=== PATIENT | female | born 1965 | race Caucasian/White ===

== ENCOUNTER 2019-08-18 01:42 | Day surgery (SDC) | payer OTHER, SELFPAY ==
[2019-08-11 14:48] VITALS: BMI 52.2
[2019-08-18 08:36] VITALS: BP 179/88; PULSE 71; RESP 16; TEMP 36.4; O2SAT 97
--- NOTE | 2019-08-18 08:48 | PM.HPGS ---
History of Present Illness History of Present Illness Consent: Risks, benefits, and alternatives have been discussed and questions answered. Patient agrees to proceed with procedure. Chief complaint: neoplasm screening Narrative: Kylee Ramos is a 54 year old obes W female Referred for her 1st screening colonoscopy secondary to positive colo guard test. Patient is asymptomatic and there is no family history of colon polyps or colo PMFSH Past Medical History Medical History (Updated 08/18/19 @ 08:49 by Scotty Everett MD) Hypertension Morbid obesity Surgical History Surgical History (Updated 08/18/19 @ 08:49 by Scotty Everett MD) H/O total hysterectomy with bilateral salpingo-oophorectomy (BSO) Family History Family History (Updated 03/17/19 @ 14:43 by DOCTOR UNKNOWN) Father Family history of cardiovascular disease, Onset Age: 89 Mother Family history of cardiovascular disease, Onset Age: 82 Social History Social History Smoking status: Never smoker Meds Home Medications and Allergies Home Medications Medication Instructions Recorded Confirmed Type acetaminophen [Tylenol] 325 mg PO ONCE PRN 08/11/19 08/18/19 History ergocalciferol (vitamin D2) 1,250 mcg PO WEEKLY 08/11/19 08/18/19 History lisinopril-hydrochlorothiazide 1 tablet PO DAILY 08/11/19 08/18/19 History Allergies Allergy/AdvReac Type Severity Reaction Status Date / Time No Known Allergies Allergy Verified 08/18/19 08:33 Vital Signs Vital Signs - 24 hr 08/18/19 08:36 Temperature 36.4 C L Pulse Rate 71 Respiratory Rate 16 Blood Pressure 179/88 H Pulse Oximetry 97 Exam Const: Orientation/consciousness: patient oriented x3 Resp: Auscultation: clear to auscultation bilaterally Cardio: Rate: regular rate Rhythm: regular rhythm Heart sounds: no murmurs GI: GI Palp: Yes Soft to palpation, No Tenderness to palpation present (GI), Yes No hepatosplenomegaly present and No Palpable mass present Auscultation: normal bowel sounds Neuro: General: patient oriented x3 and no focal motor deficits Extrem: General: no pedal edema Assessment and Plan Additional Plan screening colonoscopy secondary positive colo guard test
[2019-08-18] MEDS: LACTATED RINGERS 1,000 ML 150 ML IV CONT (08:53)
--- NOTE | 2019-08-18 09:25 | WPDANESEPPF ---
Anes - Initial Pre Proc Eval Procedure: Operation Date: 08/18/19 09:30 Proposed Procedures p Screening Colonoscopy - Scotty Everett MD Date/Time: 08/18/19 09:25 Surgeon: Scotty Everett MD Pre Op Diagnosis: neoplasm screening Patient Data Age: 54 Gender: F Height: 5 ft 2 in Weight: 133.8 kg Last Vital Signs Temp 97.5 F L 08/18/19 08:36 Pulse 71 08/18/19 08:36 Resp 16 08/18/19 08:36 BP 179/88 H 08/18/19 08:36 Pulse Ox 97 08/18/19 08:36 Allergies Allergy/AdvReac Type Severity Reaction Status Date / Time No Known Allergies Allergy Verified 08/18/19 08:33 Home Medications Medication Instructions Recorded Confirmed Type acetaminophen [Tylenol] 325 mg PO ONCE PRN 08/11/19 08/18/19 History ergocalciferol (vitamin D2) 1,250 mcg PO WEEKLY 08/11/19 08/18/19 History lisinopril-hydrochlorothiazide 1 tablet PO DAILY 08/11/19 08/18/19 History Patient hx anesthesia problems: none Family hx anesthesia problems: none PMFSH Past Medical History Medical History (Updated 08/18/19 @ 09:26 by Rico Walden MD) Hypertension Super obesity Surgical History Surgical History (Updated 08/18/19 @ 08:49 by Scotty Everett MD) H/O total hysterectomy with bilateral salpingo-oophorectomy (BSO) Family History Family History (Updated 03/17/19 @ 14:43 by DOCTOR UNKNOWN) Father Family history of cardiovascular disease, Onset Age: 89 Mother Family history of cardiovascular disease, Onset Age: 82 Social History Social History Smoking status: Never smoker Anes - Eval Final PreProcedure Day of Procedure 08/18/19 09:25 Patient weight: super morbidly obese Heart: regular rate and rhythm Lungs: clear to auscultation Airway: Mallampati scale class III Neurological: alert and oriented Last oral intake: >/= 8 hours ASA classification: IV Emergent: no Anesthetic plan: proceed Anesthesia type and monitoring: general GIVS and standard monitoring Informed Consent: The patient's anesthetic plan and its attendant risks and benefits were discussed with the patient/family/POA. Questions were solicited and answers provided to the satisfaction of the patient/family/POA.
--- NOTE | 2019-08-18 10:02 | SUR.OPER ---
RESOLUTION CLIP X2 [id number] EXP
[2019-08-18 10:07] VITALS: BP 116/48; PULSE 66; RESP 18; O2SAT 98
[2019-08-18 10:17] VITALS: BP 125/56; PULSE 60; RESP 18; O2SAT 99
[2019-08-18 10:27] VITALS: BP 127/55; PULSE 62; RESP 19; O2SAT 100
== END 2019-08-18 10:43 | disposition home or self-care (01) ==
PROVIDERS: PCP Family Medicine; Visit Provider Internal Medicine Gastroenterology
PROC: 0DJD8ZZ Inspection of Lower Intestinal Tract, Via Natural or Artificial Opening Endoscopic (ICD-10-PCS; CPT 45378; principal; 2019-08-18 09:30)
DX: Z12.11 Encounter for screening for malignant neoplasm of colon (principal); D12.4 Benign neoplasm of descending colon; D12.8 Benign neoplasm of rectum; K57.30 Diverticulosis of large intestine without perforation or abscess without bleeding; R19.5 Other fecal abnormalities; I10 Essential (primary) hypertension; E66.01 Morbid (severe) obesity due to excess calories; Z68.43 Body mass index [BMI] 50.0-59.9, adult
CPT/HCPCS: 45381; 45380; 45385; 88305; J2704; J7120

== ENCOUNTER → 2019-10-29 15:30 | Outpatient (CLI) | payer OTHER, SELFPAY ==
--- NOTE | ~2019-10-29 | XR_ITS ---
XR chest 2V DATE: 10/29/2019 15:43 INDICATION: Cough TECHNIQUE: 2 views COMPARISON: None FINDINGS: Borderline heart size. Aortic tortuosity. No hilar or mediastinal enlargement. No pulmonary infiltrate or consolidation, pleural effusion or pulmonary vascular congestion or pneumo thorax. IMPRESSION: No active pulmonary disease Reviewed, dictated and finalized at location A. IMPRESSION: No active pulmonary disease
== END ==
PROVIDERS: PCP Family Medicine; Visit Provider Family Medicine
DX: R05 Cough (principal)
CPT/HCPCS: 71046

== ENCOUNTER → 2021-08-31 09:34 | Outpatient (CLI) | payer OTHER, SELFPAY ==
--- NOTE | ~2021-08-31 | MM_ITS ---
EXAMINATION: MM diagnostic leonard LT w reji HISTORY: Six-month follow-up for probably benign left breast asymmetry. TECHNIQUE: Craniocaudal, mediolateral, and mediolateral oblique 3-D tomosynthesis images of the left breast were performed and synthetic 2-D images were generated. Spot compression views are also obtain ed. CAD analysis was submitted and interpreted. COMPARISON: 03/08/2021, 02/22/2021 BREAST PARENCHYMAL COMPOSITION: There are scattered areas of fibroglandular density. FINDINGS: No persistent left breast asymmetry is identified. Scattered benign-appearing calcification s are present. No suspicious mass or architectural distortion are identified. IMPRESSION: 1. No persistent left breast asymmetry identified. 2. Routine screening mammography is recommended. BI-RADS Category 2: Benign finding(s). Reviewed, dictated and finalized at location A. ME CLEANER
== END ==
PROVIDERS: PCP Family Medicine; Visit Provider Nurse Practitioner Gerontology
DX: R92.8 Other abnormal and inconclusive findings on diagnostic imaging of breast (principal)
CPT/HCPCS: 77061; 77065; G0279

== ENCOUNTER → 2022-07-27 08:19 | Outpatient (CLI) | payer OTHER, SELFPAY ==
--- NOTE | ~2022-07-27 | CT_ITS ---
EXAMINATION: CT abdomen pelvis wo con DATE: 07/27/2022 08:36 INDICATION: Right lower quadrant pressure. History of colon cancer with resection and ileostomy TECHNIQUE: Computed tomography (CT) of the abdomen and pelvis was performed without intravenous contr ast. Automated exposure control and iterative reconstruction technique were employed. Exam dose: 104 3.98 mGy-cm total exam DLP. COMPARISON: None. FINDINGS: The lung bases are clear of infiltrate or consolidation. Cardiomegaly. No pericardial or pl eural effusion. Gallstones are noted including 2.5 cm calcified gallstone. No gallbladder wall thickening or perichol ecystic fluid or fat stranding is noted. No bile duct dilatation. No pancreatic duct dilatation. No hepatic, splenic, pancreatic, adrenal or renal space-occupying mass lesion is evident on this limi jonnie noncontrast examination. Spleen measures within upper limits of normal size at approximately 2.8 cm length. No urinary tract calculus or hydroureteronephrosis. The urinary bladder is relatively evacuated. The uterus is absent. No adnexal mass lesion is noted. Normal caliber of the abdominal aorta. No intraperitoneal or retroperitoneal or pelvic mass lesion or adenopathy or ascites. Normal appendix. There is a suture line at the distal small bowel and another at the rectosigmoid area. No bowel obstruction, bowel wall thickening, pneumatosis or intraperitoneal free air is detected. Small fat-containing umbilical hernia. There is a right parasagittal infraumbilical fat-containing ve ntral abdominal wall hernia. Degenerative changes of the thoracic and to a lesser extent lumbar spine. No suspicious osteolytic or osteoblastic lesions are noted. IMPRESSION: Cholelithiasis Postoperative change of distal small bowel and rectosigmoid area; no bowel obstruction or free air Normal appendix Reviewed, dictated and finalized at Location A. Reviewed, dictated and finalized at location L. TH ASSISTANT IMPRESSION: Cholelithiasis Postoperative change of distal small bowel and rectosigmoid area; no bowel obst ruction or free air Normal appendix
== END ==
PROVIDERS: Visit Provider Family Medicine
DX: R10.813 Right lower quadrant abdominal tenderness (principal); K80.20 Calculus of gallbladder without cholecystitis without obstruction
CPT/HCPCS: 74176

== ENCOUNTER 2024-01-16 00:10 | Day surgery (SDC) | payer OTHER, SELFPAY ==
[2023-12-31 13:49] VITALS: BMI 43.7
[2024-01-16 11:39] VITALS: BP 166/93; PULSE 76; RESP 18; TEMP 36.1; O2SAT 99
[2024-01-16] MEDS: LACTATED RINGERS 1,000 ML 150 ML IV CONT (11:59)
--- NOTE | 2024-01-16 13:00 | WPDANESEPPF ---
Anes - Initial Pre Proc Eval Procedure: Operation Date: 01/16/24 12:30 Proposed Procedures p Colonoscopy - Dillon Hanson MD Date/Time: 01/16/24 13:00 Surgeon: Dillon Hanson MD Pre Op Diagnosis: change in bowel habit, Personal history of other Patient Data Age: 58 Gender: F Height: 1.55 m Weight: 120.2 kg Last Vital Signs Temp 36.1 C L 01/16/24 11:39 Pulse 76 01/16/24 11:39 Resp 18 01/16/24 11:39 BP 166/93 H 01/16/24 11:39 Pulse Ox 99 01/16/24 11:39 O2 Del Method Room Air 01/16/24 11:39 Allergies Allergy/AdvReac Type Severity Reaction Status Date / Time No Known Allergies Allergy Verified 01/16/24 11:16 Home Medications Medication Instructions Recorded Confirmed Type loperamide 2 mg capsule (Imodium 2 mg PO Q6H PRN loose stool #120 07/18/22 01/16/24 Rx A-D) caps amlodipine 5 mg tablet 5 mg PO .PM #90 tabs 09/10/23 01/16/24 Rx irbesartan 300 1 tablet PO DAILY #90 tabs 09/10/23 01/16/24 Rx mg-hydrochlorothiazide 12.5 mg tablet albuterol sulfate 90 mcg/actuation 1 inh inhalation Q4H PRN shortness 12/19/23 01/16/24 Rx aerosol inhaler of breath or wheezing #6.7 grams Patient hx anesthesia problems: none Family hx anesthesia problems: none Results Review: All pre-operative results and documents have been reviewed as part of the pre-operative evaluation. [facility] Past Medical History Medical History Adenomatous colon polyp Benign essential HTN BMI 37.0-37.9, adult BMI 40.0-44.9, adult Colon cancer Endometriosis Hypertension Low anterior resection syndrome Super obesity Surgical History Surgical History H/O ileostomy H/O rectal polypectomy H/O total hysterectomy with bilateral salpingo-oophorectomy (BSO) History of partial colectomy Family History Family History Father Family history of cardiovascular disease, Onset Age: 89 Mother Family history of cardiovascular disease, Onset Age: 82 Social History Social History Social History: Smoking status: Never smoker Second hand tobacco smoke exposure: No Alcohol intake: current Alcohol use details: Occasionally Substance use: never Substance use type: does not use Do You Feel Safe in your Home?: Yes Lack of Transportation: No Lack of Food: Never True Current Housing: I Have Housing Concerned About Future Housing: No Difficulty Paying Gas/Electric Bills: No Difficulty Paying for Meds: No Currently Unemployed: YES Education: Decline to Answer Difficulty w/ Childcare or Family Care: No Living arrangements: with family Occupation/Education: unemployed Additional occupation/education comments: Disability Gender identity (if verbalized by the patient): Female Sexual Orientation (if Verbalized by the Patient): Straight or Heterosexual Spiritual care concerns: No Anes - Eval Final PreProcedure Day of Procedure 01/16/24 13:00 Patient weight: super morbidly obese Heart: regular rate and rhythm Lungs: clear to auscultation Airway: Mallampati scale class II Neurological: alert and oriented Last oral intake: >/= 8 hours ASA classification: III Emergent: no Anesthetic plan: proceed Anesthesia type and monitoring: general GIVS and standard monitoring Results Review: All pre-operative results and documents have been reviewed as part of the pre-operative evaluation. Informed Consent: The patient's anesthetic plan and its attendant risks and benefits were discussed with the patient/family/POA. Questions were solicited and answers provided to the satisfaction of the patient/family/POA.
--- NOTE | 2024-01-16 13:08 | PM.HPGS ---
History of Present Illness History of Present Illness Consent: Risks, benefits, and alternatives have been discussed and questions answered. Patient agrees to proceed with procedure. Chief complaint: change in bowel habit, history of rectal ca Narrative: Kylee Ramos is a 58 year old female with rectal cancer 2020 s/p surgery and last colonoscopy 2 years ago, recently with change in bowel habit Review of Systems Review of Systems: All systems reviewed & are unremarkable except as noted in HPI and below PMFSH Past Medical History Medical History (Updated 01/16/24 @ 13:11 by Dillon Hanson MD) Adenomatous colon polyp Benign essential HTN BMI 37.0-37.9, adult BMI 40.0-44.9, adult Bowel habit changes Colon cancer Endometriosis Hypertension Low anterior resection syndrome Super obesity Surgical History Surgical History H/O ileostomy H/O rectal polypectomy H/O total hysterectomy with bilateral salpingo-oophorectomy (BSO) History of partial colectomy Family History Family History Father Family history of cardiovascular disease, Onset Age: 89 Mother Family history of cardiovascular disease, Onset Age: 82 Social History Social History Social History: Smoking status: Never smoker Second hand tobacco smoke exposure: No Alcohol intake: current Alcohol use details: Occasionally Substance use: never Substance use type: does not use Do You Feel Safe in your Home?: Yes Lack of Transportation: No Lack of Food: Never True Current Housing: I Have Housing Concerned About Future Housing: No Difficulty Paying Gas/Electric Bills: No Difficulty Paying for Meds: No Currently Unemployed: YES Education: Decline to Answer Difficulty w/ Childcare or Family Care: No Living arrangements: with family Occupation/Education: unemployed Additional occupation/education comments: Disability Gender identity (if verbalized by the patient): Female Sexual Orientation (if Verbalized by the Patient): Straight or Heterosexual Spiritual care concerns: No Meds Home Medications and Allergies Home Medications Medication Instructions Recorded Confirmed Type loperamide 2 mg capsule (Imodium 2 mg PO Q6H PRN loose stool #120 07/18/22 01/16/24 Rx A-D) caps amlodipine 5 mg tablet 5 mg PO .PM #90 tabs 09/10/23 01/16/24 Rx irbesartan 300 1 tablet PO DAILY #90 tabs 09/10/23 01/16/24 Rx mg-hydrochlorothiazide 12.5 mg tablet albuterol sulfate 90 mcg/actuation 1 inh inhalation Q4H PRN shortness 12/19/23 01/16/24 Rx aerosol inhaler of breath or wheezing #6.7 grams Allergies Allergy/AdvReac Type Severity Reaction Status Date / Time No Known Allergies Allergy Verified 01/16/24 11:16 Vital Signs Vital Signs - 24 hr 01/16/24 11:39 Temperature 97 F L Pulse Rate 76 Respiratory Rate 18 Blood Pressure 166/93 H Pulse Oximetry 99 Oxygen Delivery Room Air Exam Const: General: comfortable and no acute distress HENMT: Face/Nose/Sinus: Normal nares present Eyes: General: appearance normal, both eyes and all related structures Neck: Neck: no JVD Resp: Auscultation: clear to auscultation bilaterally Cardio: Rate: regular rate Rhythm: regular rhythm GI: Inspection: non-distended GI Palp: Yes Soft to palpation Skin: General skin exam: normal color Neuro: General: gait normal Speech: normal speech Extrem: General: normal to inspection Psych: Mental Status: mental status grossly normal Assessment and Plan Assessment and plan (1) Hx of colon cancer, stage II: Code(s): Z85.038 - Personal history of other malignant neoplasm of large intestine Status: Acute Assessment and Plan: colonoscopy (2) Bowel habit changes: Code(s):
[2024-01-16 13:22] VITALS: BP 130/60; PULSE 64; RESP 15; O2SAT 100
[2024-01-16 13:32] VITALS: BP 147/86; PULSE 60; RESP 18; O2SAT 100
[2024-01-16 13:42] VITALS: BP 165/85; PULSE 63; RESP 19; O2SAT 100
== END 2024-01-16 13:49 | disposition home or self-care (01) ==
PROVIDERS: PCP Family Medicine; Visit Provider Internal Medicine Gastroenterology
PROC: 0DJD8ZZ Inspection of Lower Intestinal Tract, Via Natural or Artificial Opening Endoscopic (ICD-10-PCS; CPT 45378; principal; 2024-01-16 12:30)
DX: R19.4 Change in bowel habit (principal); I10 Essential (primary) hypertension; N80.9 Endometriosis, unspecified; E66.01 Morbid (severe) obesity due to excess calories; Z68.43 Body mass index [BMI] 50.0-59.9, adult; Z79.51 Long term (current) use of inhaled steroids; Z98.890 Other specified postprocedural states; Z98.0 Intestinal bypass and anastomosis status; Z93.2 Ileostomy status; Z90.49 Acquired absence of other specified parts of digestive tract; Z86.010 Personal history of colon polyps; Z85.038 Personal history of other malignant neoplasm of large intestine; Z82.49 Family history of ischemic heart disease and other diseases of the circulatory system
CPT/HCPCS: 45378; J2704; J7120

== ENCOUNTER 2025-05-25 10:59 | Outpatient (CLI) | payer MEDICARE, SELFPAY ==
[2025-05-25 11:45] LABS: Alanine Aminotransferase 35 U/L (6-35); Albumin Level 4.4 g/dL (3.5-5.1); Alkaline Phosphatase 81 U/L (38-126); Anion Gap 7 mmol/L (4-12); Aspartate Amino Transferase 32 U/L (14-36); Bilirubin,Total 0.8 mg/dL (0.2-1.3); Blood Urea Nitrogen 14 mg/dL (7-17); Calcium 9.6 mg/dL (8.4-10.2); Carbon Dioxide 30 mmol/L (22-30); Chloride 99 mmol/L (98-107); Estimated Glomerular Filt Rate > 60; Glucose 106 mg/dL (65-110); Magnesium 1.8 mg/dL (1.6-2.3); Potassium 3.8 mmol/L (3.4-5.0); Sodium 136 mmol/L (137-145); Total Protein 7.5 g/dL (6.3-8.2)
== END 2025-05-25 11:00 | disposition home or self-care (01) ==
LOC: ANHLAB 11:01
PROVIDERS: PCP Family Medicine
DX: R00.2 Palpitations (principal); R42 Dizziness and giddiness
CPT/HCPCS: 36415; 80053; 83735

== ENCOUNTER 2025-06-09 08:50 | Outpatient (CLI) | payer MEDICARE, SELFPAY ==
--- NOTE | ~2025-06-09 | NM_ITS ---
EXAMINATION: NM haylee stress w perfusion DATE: 06/09/2025 12:09 INDICATION: Other forms of dyspnea TECHNIQUE: Rest images were obtained following intravenous administration of 11 mCi Tc99m tetrofosmin (Myoview). The patient was infused intravenously with Lexiscan (Regadenoson). Then, 22.7 mCi Tc99m tetrofosmin (Myoview) was administered intravenously, and stress images were obtained, initially in the supine position with repeat post stress images obtained in the prone position. Data was reconstructed into short axis and horizontal and vertical long axis SPECT images. Gated SPECT images were also obtained. COMPARISON: None. FINDINGS: Small focus of likely diaphragmatic attenuation artifact along the apical anterior segment post stress imaging obtained in the supine position which normalizes on prone imaging. There is no definite reversible or fixed perfusion abnormality to suggest ischemia or infarction. There is normal left ventricular chamber size, wall motion and ejection fraction. Left ventricular ejection fraction measures 61%. IMPRESSION: 1. Normal myocardial perfusion at rest and during stress. 2. Left ventricular ejection fraction measuring 61%. Reviewed, dictated and finalized at location A. N BLENDER
--- NOTE | 2025-06-09 09:57 | EST_ITS ---
Patient Info Name: Kylee Ramos Age: 60 years : 1965 Gender: Female Ht: 61 in Wt: 257 lbs BSA: 2.32 m2 HR: 65 bpm BP: 139 / 74 mmHg Exam Date: 06/09/2025 9:57 AM Patient Status: O Admit Date: 06/09/2025 Exam Type: CA stress haylee w NM A regadenoson stress test was performed. Staff Referring Physician: Paige Coon Attending Provider: Paige Coon Exercise Technologist: Brissa Alexis Exercise Physician: Randy Butler DO Summary 1. 1. Negative lexiscan stress test for ischemic ST changes by ECG criteria. 2. 2. Stable hemodynamics throughout the test. 3. 3. Nuclear scan to follow and will be reported separately. Please correlate with it. 4. 4. Patient informed of the above results. Protocol: Lexiscan Stress ECG Details Stage: REST Duration (min): 1 min : 41 sec HR (bpm): 75 SBP (mmHg): 139 DBP (mmHg): 74 Stage: REST Duration (min): 9 min : 45 sec HR (bpm): 75 SBP (mmHg): 139 DBP (mmHg): 74 Stage: STAGE 1 Duration (min): 0 min : 59 sec HR (bpm): 74 SBP (mmHg): 147 DBP (mmHg): 82 Stage: RECOVERY Duration (min): 1 min : 0 sec HR (bpm): 94 SBP (mmHg): 147 DBP (mmHg): 82 Stage: RECOVERY Duration (min): 2 min : 0 sec HR (bpm): 96 SBP (mmHg): 147 DBP (mmHg): 82 Stage: RECOVERY Duration (min): 3 min : 0 sec HR (bpm): 88 SBP (mmHg): 151 DBP (mmHg): 77 Stage: RECOVERY Duration (min): 4 min : 0 sec HR (bpm): 85 SBP (mmHg): 151 DBP (mmHg): 77 Stage: RECOVERY Duration (min): 5 min : 0 sec HR (bpm): 82 SBP (mmHg): 154 DBP (mmHg): 76 Stage: RECOVERY Duration (min): 5 min : 2 sec HR (bpm): 82 SBP (mmHg): 154 DBP (mmHg): 76 Rest HR: 75 bpm Peak HR: 100 bpm Rest Sys BP: 139 mmHg Peak Sys BP: 154 mmHg Max Pred HR: 159 bpm % Max Pred HR: 63 % Target HR: 135 bpm Max RPP: 15,400 bpm*mmHg Termination Reason: Completed protocol Cardiac Symptoms: Shortness of breath Total Time: 1 min : 0 sec Rest Blanchard BP: 74 mmHg Peak Blanchard BP: 76 mmHg Total Dose: 0.4 mg Resting ECG Sinus rhythm. Stress ECG No ST changes. Arrhythmias None. Report Signatures
== END 2025-06-09 08:51 | disposition home or self-care (01) ==
PROVIDERS: PCP Family Medicine
DX: R06.09 Other forms of dyspnea (principal); R00.2 Palpitations
CPT/HCPCS: 78452; 93017; A9502; J2785